=== PATIENT | male | born 1990 | race Caucasian/White ===

== ENCOUNTER 2017-12-30 08:13 | Emergency (ER) | payer SELFPAY ==
[2017-12-30 08:26] VITALS: BP 119/69
[2017-12-30] MEDS ORDERED: Albuterol 2.5 MG/3 ML NEB.SOL* (0.083%) INH ONE (08:50)
--- NOTE | 2017-12-30 08:54 | ED ---
Respiratory - HPI Summary HPI Summary: patient with several days of cough , denies fever or chills, no hx. of pleuritic pain or shortness of breath, hx. of asthma as a child. currently taking no medications - History of Current Complaint Chief Complaint: UCRespiratory Stated Complaint: COUGH,CONGESTED Time Seen by Provider: 12/30/17 08:50 Hx Obtained From: Patient Onset/Duration: Gradual Onset, Lasting Days Timing: Constant Initial Severity: Moderate Current Severity: Moderate Pain Intensity: 4 Sputum Amount: Small Sputum Color: Green Aggravating Factor(s): Nothing Alleviating Factor(s): Nothing Associated Signs and Symptoms: Negative - Allergy/Home Medications Allergies/Adverse Reactions: Allergies Allergy/AdvReac Type Severity Reaction Status Date / Time No Known Allergies Allergy Verified 12/30/17 08:25 Home Medications: Home Medications NK [No Home Medications Reported] 12/30/17 [History Confirmed 12/30/17] PMH/Surg Hx/FS Hx/Imm Hx Previously Healthy: Yes Endocrine/Hematology History: Denies: Hx Diabetes, Hx Thyroid Disease Cardiovascular History: Denies: Hx Hypertension Respiratory History: Denies: Hx Asthma, Hx Chronic Obstructive Pulmonary Disease (COPD) GI History: Denies: Hx Ulcer Infectious Disease History: No Infectious Disease History: Denies: Hx Clostridium Difficile, Hx Hepatitis, Hx Human Immunodeficiency Virus (HIV), Hx of Known/Suspected MRSA, Hx Shingles, Hx Tuberculosis, Traveled Outside the in Last 30 Days - Social History Alcohol Use: Occasionally Substance Use Type: Reports: None Smoking Status (MU): Never Smoked Tobacco Review of Systems Constitutional: Negative Eyes: Negative Positive: Sore Throat Cardiovascular: Negative Respiratory: Negative Positive: Cough Gastrointestinal: Negative Genitourinary: Negative Musculoskeletal: Negative Skin: Negative All Other Systems Reviewed And Are Negative: Yes Physical Exam Triage Information Reviewed: Yes Vital Signs On Initial Exam: Initial Vitals Temp Pulse Resp BP Pulse Ox 36.6 C 64 16 119/69 100 12/30/17 08:23 12/30/17 08:23 12/30/17 08:23 12/30/17 08:23 12/30/17 08:23 Vital Signs Reviewed: Yes Appearance: Positive: Well-Appearing Skin: Positive: Warm, Dry Head/Face: Positive: Normal Head/Face Inspection Eyes: Positive: Normal ENT: Positive: Normal ENT inspection Neck: Positive: Supple Respiratory/Lung Sounds: Positive: Clear to Auscultation Cardiovascular: Positive: Normal Diagnostics - Vital Signs Vital Signs Temp Pulse Resp BP Pulse Ox 12/30/17 08:23 36.6 C 64 16 119/69 100 - Laboratory Lab Statement: Any lab studies that have been ordered have been reviewed, and results considered in the medical decision making process. Disposition - Diagnoses Provider Diagnoses: Viral URI Discharge - Sign-Out/Discharge Documenting (check all that apply): Patient Departure All imaging exams completed and their final reports reviewed: Yes - Discharge Plan Condition: Good Disposition: HOME Patient Education Materials: Viral Syndrome (ED) Referrals: No Primary Care Phys,NOPCP [Primary Care Provider] - - Billing Disposition and Condition Condition: GOOD Disposition: Home
== END 2017-12-30 09:41 | disposition home or self-care (01) ==
LOC: UCEAST 08:13
DX: J06.9 Acute upper respiratory infection, unspecified (principal)
CPT/HCPCS: 99212; G0463

== ENCOUNTER 2018-09-26 10:47 | Emergency (ER) | payer SELFPAY ==
--- NOTE | 2018-09-26 10:54 | ED ---
Back Pain - HPI Summary HPI Summary: This patient is a 28 year old male brought in by presenting to [facility] with a chief complaint of back pain 4 hours ago. The patient states when he woke up this morning he could not even move his legs or back to get out of bed at onset of pain. He also reported numbness in his face and right arm which resolved. The patient states when he walks he has pain bilaterally shooting up from his hips up through his lumbar spine which is still present. - History of Current Complaint Stated Complaint: BACK PAIN/FACIAL NUMBNESS PER PT FRIEND Hx Obtained From: Patient Onset/Duration: Lasting Hours Onset/Duration: Started Hours Ago Timing: Constant Aggravating Symptom(s): Movement - Allergies/Home Medications Allergies/Adverse Reactions: Allergies Allergy/AdvReac Type Severity Reaction Status Date / Time No Known Allergies Allergy Verified 12/30/17 08:25 PMH/Surg Hx/FS Hx/Imm Hx Endocrine/Hematology History: Denies: Hx Diabetes, Hx Thyroid Disease Cardiovascular History: Denies: Hx Hypertension Respiratory History: Denies: Hx Asthma, Hx Chronic Obstructive Pulmonary Disease (COPD) GI History: Denies: Hx Ulcer Infectious Disease History: Denies: Hx Clostridium Difficile, Hx Hepatitis, Hx Human Immunodeficiency Virus (HIV), Hx of Known/Suspected MRSA, Hx Shingles, Hx Tuberculosis - Family History Known Family History: Negative: Hypertension - Social History Alcohol Use: Occasionally Substance Use Type: Reports: None Smoking Status (MU): Never Smoked Tobacco Review of Systems Positive: Other - Back pain Positive: Numbness All Other Systems Reviewed And Are Negative: Yes Physical Exam - Summary Physical Exam Summary: VITAL SIGNS: Reviewed. GENERAL: Patient is a well-developed and nourished MALE who is lying comfortable in the stretcher. Patient is not in any acute respiratory distress. HEAD AND FACE: No signs of trauma. No ecchymosis, hematomas or skull depressions. No sinus tenderness. EYES: PERRLA, EOMI x 2, No injected conjunctiva, no nystagmus. EARS: Hearing grossly intact. Ear canals and tympanic membranes are within normal limits. MOUTH: Oropharynx within normal limits. NECK: Supple, trachea is midline, no adenopathy, no JVD, no carotid bruit, no c- spine tenderness, neck with full ROM. T-spine tenderness. CHEST: Symmetric, no tenderness at palpation. LUNGS: Clear to auscultation bilaterally. No wheezing or crackles. CVS: Regular rate and rhythm, S1 and S2 present, no murmurs or gallops appreciated. ABDOMEN: Soft, non-tender. No signs of distention. No rebound, no guarding, and no masses palpated. Bowel sounds are normal. EXTREMITIES: FROM in all major joints, no edema, no cyanosis or clubbing. NEURO: Alert and oriented x 3. No acute neurological deficits. Speech is normal and follows commands. SKIN: Dry and warm. Triage Information Reviewed: Yes Vital Signs Reviewed: Yes Diagnostics - Laboratory Lab Statement: Any lab studies that have been ordered have been reviewed, and results considered in the medical decision making process. - Radiology CXR Radiology Interpretation Completed By: Radiologist Summary of Radiographic Findings: No radiographic evidence of acute cardiopulmonary disease. ED Provider has reviewed this report. Thoracic XR Radiology Interpretation Completed By: Radiologist Summary of Radiographic Findings: There is a mild degree of thoracolumbar levoconvex curvature without radiographically apparent acute abnormality of the thoracic or lumbar spine. ED Provider has reviewed this report. Lumbar XR Radiology Interpretation Completed By: Radiologist Summary of Radiographic Findings: There is a mild degree of thoracolumbar levoconvex curvature without radiographically apparent acute abnormality of the thoracic or lumbar spine. ED Provider has reviewed this report. Back Pain Course/Dx - Course Assessment/Plan: This patient is a 28 year old male brought in by presenting to [facility] with a chief complaint of back pain 4 hours ago. The patient states when he woke up this morning he could not even move his legs or back to get out of bed at onset of pain. He also reported numbness in his face and right arm which resolved. The patient states when he walks he has pain bilaterally shooting up from his hips up through his lumbar spine which is still present. T spine X ray IMPRESSION: There is a mild degree of thoracolumbar levoconvex curvature without radiographically. apparent acute abnormality of the thoracic or lumbar spine. C spine CT IMPRESSION: There is a mild degree of thoracolumbar levoconvex curvature without radiographically. apparent acute abnormality of the thoracic or lumbar spine. Chest x ray IMPRESSION: No radiographic evidence of acute cardiopulmonary disease. He was given Toradol and Robaxin for the pain and the symptoms improved. I believe that the patient has a musculoskeletal pain therefore the patient will be given a prescription for ibuprofen and Robaxin. At this point I discussed all the findings and test results with the patient. Patient was instructed to return to the emergency room immediately if any of the symptoms return or worsens. Patient understands and agrees. Patient is able to ambulate freely w/o aid or limp in the ER. Plan of care was discussed with the patient and patient understands and agrees. All questions were answered at patient satisfaction. There were no further complaints or concerns. Neurological exam before discharge: Patient is alert and oriented x 3. No acute neurological deficits. Patient is hemodynamically stable. Patient is to follow up with primary care physician in the next 2 3 days. He understands and agrees. - Diagnoses Provider Diagnoses: Back pain Discharge - Sign-Out/Discharge Documenting (check all that apply): Patient Departure - Discharge Patient Received Moderate/Deep Sedation with Procedure: No - Discharge Plan Condition: Stable Disposition: HOME Prescriptions: Ibuprofen TAB* [Motrin TAB* 800 MG] 800 mg PO Q8H #30 tab Methocarbamol TAB* [Robaxin 500 MG TAB*] 500 mg PO TID PRN #12 tab PRN Reason: Pain Patient Education Materials: Back Pain (ED) Forms: *Work Release Referrals: [facility] [place] [facility] REFERR[facility] [Outside] Additional Instructions: Return to ED with any new or worsening symptoms. - Billing Disposition and Condition Condition: STABLE Disposition: Home - Attestation Statements Document Initiated by Roland: Yes Documenting Scribe: Wesley Mcmillan Provider For Whom Roland is Documenting (Include Credential): Javier Tovar MD Scribe Attestation: Wesley Hogan scribed for Javier Tovar MD on 09/26/18 at 2144. Scribe Documentation Reviewed: Yes Provider Attestation: The documentation as recorded by the Wesley mercer accurately reflects the service I personally performed and the decisions made by me, Javier Tovar MD Status of Scribe Document: Viewed
[2018-09-26] MEDS ORDERED: Ketorolac INJ* 60 MG/2 ML VIAL IM ONE (10:58)
[2018-09-26] MEDS ORDERED: Methocarbamol TAB* 500 MG PO ONE (10:58)
[2018-09-26 12:14] VITALS: BP 140/75
== END 2018-09-26 12:13 | disposition home or self-care (01) ==
LOC: ED 10:47
DX: M54.9 Dorsalgia, unspecified (principal)
CPT/HCPCS: 71046; 72070; 72100; 96372; 99282; A9270-GY; J1885

== ENCOUNTER 2018-09-27 11:30 | Emergency (ER) | payer SELFPAY ==
[2018-09-27 11:46] VITALS: BP 108/65
--- NOTE | 2018-09-27 11:46 | UC ---
Back Pain HPI - HPI Summary HPI Summary: 28 yo male presents with back pain. He tells me that yesterday morning he woke up with severe back pain and "couldn't get out of bed". His called and ambulance and he was brought to the ED for further eval. At the ED imaging was done which did not show any acute process. The pt was diagnosed with muscle spasm/strain and rx'd NSAIDs and muscle relaxers upon discharge. Today he tells me that he is feeling much better, but is still having some pain. The muscle relaxers really helped, but they made him very sleepy. He is here today because he would like to continue taking the muscle relaxers, but does not feel he can go to work because they make him tired. He is requesting a note for work for a few days. Currently denies radiation of pain, headache, dizziness, numbness, tingling, saddle anesthesia, loss of bowel/bladder control. No specific injury. - History of Current Complaint Chief Complaint: UCBackPain Stated Complaint: BACK PAIN Hx Obtained From: Patient Onset/Duration: Sudden Onset Severity Initially: Severe Severity Currently: Moderate Pain Intensity: 7 Pain Scale Used: 0-10 Numeric - Allergies/Home Medications Allergies/Adverse Reactions: Allergies Allergy/AdvReac Type Severity Reaction Status Date / Time No Known Allergies Allergy Verified 09/27/18 11:46 PMH/Surg Hx/FS Hx/Imm Hx Respiratory History: Asthma - Surgical History Surgical History: None - Family History Known Family History: Negative: Hypertension - Social History Occupation: Employed Full-time Lives: With Family Alcohol Use: Occasionally Substance Use Type: None Smoking Status (MU): Current Every Day Smoker Type: Smokeless Tobacco Review of Systems All Other Systems Reviewed And Are Negative: Yes Constitutional: Positive: Negative Skin: Positive: Negative Respiratory: Positive: Negative Cardiovascular: Positive: Negative Genitourinary: Positive: Negative Neurovascular: Positive: Negative Musculoskeletal: Positive: Other: - Back pain Neurological: Positive: Negative Psychological: Positive: Negative Physical Exam - Summary Physical Exam Summary: GENERAL: NAD. WDWN. No pain distress. SKIN: No rashes, sores, lesions, or open wounds. NECK: Supple. FROM. Nontender. No lymphadenopathy. CHEST: CTAB. No r/r/w. No accessory muscle use. Breathing comfortably and in no distress. CV: RRR. Without m/r/g. Pulses intact. Cap refill <2seconds MSK: TTP over thoracic and lumbar paraspinal muscles. Pain with flexion and extension of spine and with twisting of torso. Negative SLR b/l.Strength 5/5 B/ L LEs including dorsiflexion and plantar flexion. FROM B/L LEs. No edema. NEURO: Alert. Sensations intact B/L LEs L3-S1. Reflexes intact PSYCH: Age appropriate behavior. Triage Information Reviewed: Yes Vital Signs: Initial Vital Signs Temp 98.4 F 09/27/18 11:42 Pulse 69 09/27/18 11:42 Resp 18 09/27/18 11:42 BP 108/65 09/27/18 11:42 Pulse Ox 100 09/27/18 11:42 Vital Signs Reviewed: Yes Back Pain Course/Dx - Course Course Of Treatment: Agree with previous dx of muscle spasm. Pt is having good relief with muscle relaxers and NSAIDs and heat. Will have him continue these and will write him a note out of work through thursday. - Differential Dx/Diagnosis Provider Diagnosis: Back spasm Discharge - Sign-Out/Discharge Documenting (check all that apply): Patient Departure All imaging exams completed and their final reports reviewed: No Studies - Discharge Plan Condition: Stable Disposition: HOME Patient Education Materials: Low Back Strain (ED), Muscle Spasm (ED), Thoracic Back Strain (ED) Forms: *Work Release Referrals: No Primary Care Phys,NOPCP [Primary Care Provider] - Additional Instructions: If you develop a fever, shortness of breath, chest pain, new or worsening symptoms - please call your PCP or go to the ED immediately. 1) Continue taking your medications as prescribed 2) Rest and apply heat to your back areas of discomfort 3) Practice gentle range of motion exercises to loosen the muscles and keep from getting stiff - Billing Disposition and Condition Condition: STABLE Disposition: Home
== END 2018-09-27 12:02 | disposition home or self-care (01) ==
LOC: UCEAST 11:30
DX: M62.830 Muscle spasm of back (principal); F17.290 Nicotine dependence, other tobacco product, uncomplicated
CPT/HCPCS: 99211; G0463

== ENCOUNTER 2019-05-22 10:50 | Emergency (ER) | payer SELFPAY ==
[2019-05-22] MEDS ORDERED: Cyclobenzaprine TAB* 10 MG PO ONE (11:48)
[2019-05-22] MEDS ORDERED: Ibuprofen TAB* 600 MG PO ONE (11:48)
--- NOTE | 2019-05-22 11:56 | ED ---
Neck Pain - HPI Summary HPI Summary: This patient is a 29-year-old male presenting to the ED with left-sided neck pain. Patient states he was turning his neck yesterday afternoon and felt immediate pain to the posterior left side. Denies any pain directly over the spine. Denies any difficulty breathing or swallowing. He states yesterday he had neck pain to the right side and he feels this is shifted not to the left side. He continues to be able to flex and extend at the neck as well as rotate about the neck, however with some pain. Pain directly over the scapula. He is able to abduct and adduct at the shoulder. He is also able to flex and extend at the shoulder joint. Denies any fevers. Denies any illicit drug use. No numbness or tingling throughout the bilateral extremities. No color or temperature changes. Good operations support representative strength throughout. He has tried tylenol at home without relief. - History of Current Complaint Chief Complaint: EDNeckComplaint Stated Complaint: LEFT SIDE OF BODY SORE PER PT Time Seen by Provider: 05/22/19 11:12 Hx Obtained From: Patient Onset/Duration Of Injury/Symptoms: Hours Timing: Constant Onset/Duration: Sudden Onset Severity Initially: Moderate Severity Currently: Moderate Pain Intensity: 9 Pain Scale Used: 0-10 Numeric Character: Aching, Stiff Aggravating Factors: Movement Alleviating Factors: Nothing Associated Signs & Symptoms: Positive: Negative - Risk Factors Meningitis Risk Factors: Negative - Allergies/Home Medications Allergies/Adverse Reactions: Allergies Allergy/AdvReac Type Severity Reaction Status Date / Time No Known Allergies Allergy Verified 05/22/19 11:03 Home Medications: Home Medications Albuterol HFA INHALER* [Ventolin HFA Inhaler*] 2 puff INH Q6H PRN #1 mdi [Rx] Ibuprofen TAB* [Motrin TAB* 800 MG] 800 mg PO Q8H #30 tab 09/26/18 [Rx] Methocarbamol TAB* [Robaxin 500 MG TAB*] 500 mg PO TID PRN #12 tab 09/26/18 [Rx] PMH/Surg Hx/FS Hx/Imm Hx Previously Healthy: Yes Endocrine/Hematology History: Denies: Hx Diabetes, Hx Thyroid Disease Cardiovascular History: Denies: Hx Hypertension Respiratory History: Denies: Hx Asthma, Hx Chronic Obstructive Pulmonary Disease (COPD) GI History: Denies: Hx Ulcer Infectious Disease History: No Infectious Disease History: Denies: Hx Clostridium Difficile, Hx Hepatitis, Hx Human Immunodeficiency Virus (HIV), Hx of Known/Suspected MRSA, Hx Shingles, Hx Tuberculosis, Traveled Outside the [place] in Last 30 Days - Family History Known Family History: Negative: Hypertension - Social History Occupation: Employed Full-time Lives: With Family Alcohol Use: None Hx Substance Use: Yes Substance Use Type: Reports: Excessive Caffeine, Marijuana Smoking Status (MU): Current Every Day Smoker Type: Smokeless Tobacco Review of Systems Negative: Fever, Chills, Fatigue, Skin Diaphoresis Negative: Palpitations, Chest Pain Negative: Shortness Of Breath, Cough Positive: Arthralgia - left sided neck pain without stiffness or pain to the posterior cervical spine. Negative: Decreased ROM, Edema Skin: Negative Positive: Headache All Other Systems Reviewed And Are Negative: Yes Physical Exam Triage Information Reviewed: Yes Vital Signs On Initial Exam: Initial Vitals Temp Pulse Resp BP Pulse Ox 96.9 F 78 16 129/94 100 05/22/19 11:00 05/22/19 11:00 05/22/19 11:00 05/22/19 11:00 05/22/19 11:00 Vital Signs Reviewed: Yes Appearance: Positive: Well-Appearing, No Pain Distress, Well-Nourished Skin: Positive: Warm, Skin Color Reflects Adequate Perfusion Head/Face: Positive: Normal Head/Face Inspection Eyes: Positive: EOMI, KYLIE, Conjunctiva Clear Neck: Positive: Supple, No Lymphadenopathy Respiratory/Lung Sounds: Positive: Clear to Auscultation, Breath Sounds Present Cardiovascular: Positive: RRR, Pulses are Symmetrical in both Upper and Lower Extremities Musculoskeletal: Positive: Pain @ - pain to the L side of the neck without pain to the posterior cervical spine Neurological: Positive: Sensory/Motor Intact, Alert, Oriented to Person Place, Time, Speech Normal Psychiatric: Positive: Normal, Affect/Mood Appropriate Procedures - Sedation Patient Received Moderate/Deep Sedation with Procedure: No Diagnostics - Vital Signs Vital Signs Temp Pulse Resp BP Pulse Ox 05/22/19 11:00 96.9 F 78 16 129/94 100 - Laboratory Lab Statement: Any lab studies that have been ordered have been reviewed, and results considered in the medical decision making process. Neck Course/Dx - Course Course Of Treatment: Patient is endorsing pain to the L neck and posterior shoulder pain. On physical exam, patient has pain with turning head to the L, no pain with rotation to the R. Radiation of pain to the scapula. No MCKINNON. No fevers. Pain directly over the scapula. He is able to abduct and adduct at the shoulder. He is also able to flex and extend at the shoulder joint. Denies any fevers. Denies any illicit drug use. No numbness or tingling throughout the bilateral extremities. No color or temperature changes. Good operations support representative strength throughout. Pulses +2 intact bilaterally. Patient is dx with acute neck pain/stiffness. Has muscle relaxers at home from previous muscle spasms in back. No meningismus signs. No cardiac hx. Encouraged mosit heat and ibuprofen. - Diagnoses Differential Dx/HQI/PQRI: Positive: Dystonia, Sprain, Strain, Torticollis Provider Diagnoses: Neck pain Discharge ED - Sign-Out/Discharge Documenting (check all that apply): Patient Departure - Discharge Plan Condition: Stable Disposition: HOME Patient Education Materials: Acute Neck Pain (ED) Forms: *Work Release Referrals: No Primary Care Phys,NOPCP [Primary Care Provider] - Additional Instructions: Ibuprofen 600mg four times daily Take your muscle relaxers as directed - do not drive while taking these medications Moist heat to the area as much as possible Gentle stretches - Billing Disposition and Condition Condition: STABLE Disposition: Home - Attestation Statements Provider Attestation: I was available for consult. This patient was seen by the CHRISTOPHER. The patient was not presented to, seen by, or examined by me. Ozzy Reyes MD
[2019-05-22 12:30] VITALS: BP 128/75
== END 2019-05-22 12:29 | disposition home or self-care (01) ==
LOC: ED 10:50
DX: M54.2 Cervicalgia (principal); F17.200 Nicotine dependence, unspecified, uncomplicated
CPT/HCPCS: 99282; A9270-GY